=== PATIENT | male | born 2000 | race American Indian/Alaskan Native ===

== ENCOUNTER 2018-01-14 14:43 | Emergency (ER) | payer SELFPAY ==
[~2018-01-14] VITALS: Ht 172.7 cm; Wt 77.1 kg
[2018-01-14 14:43] VITALS: BP_SYST 127
[2018-01-14] MEDS ORDERED: LIDOCAINE 1% 10 MG/ML, 20 ML MDV INJ ONE (15:30)
[2018-01-14] MEDS ORDERED: BACITRACIN 1 GM OINT TP ONE (16:05)
[2018-01-14] MEDS ORDERED: DIPH-TET-PERTUS Vaccine 0.5 ML VIAL (ADACEL) I.M. ONE (16:15)
[2018-01-14 16:26] VITALS: BP_SYST 123
== END 2018-01-14 16:26 | disposition home or self-care (01) ==
LOC: SED 14:43
DX: S61.216A Laceration without foreign body of right little finger without damage to nail, initial encounter (principal); W26.8XXA Contact with other sharp object(s), not elsewhere classified, initial encounter; Y93.89 Activity, other specified; Y92.098 Other place in other non-institutional residence as the place of occurrence of the external cause; Y99.8 Other external cause status
CPT/HCPCS: 12002; 73120; 90471; 90715; 99284; J2001